=== PATIENT | female | born 1990 | race Caucasian/White ===

== ENCOUNTER 2022-01-24 12:16 | Emergency (ER) | payer OTHER ==
[~2022-01-24] VITALS: Ht 170.2 cm; Wt 68.0 kg
[2022-01-24 12:19] VITALS: BP 111/72
[2022-01-24] MEDS ORDERED: NAPR500T7 PO (13:34)
[2022-01-24] MEDS ORDERED: CYCL5TAB PO (13:34)
== END 2022-01-24 13:56 | disposition home or self-care (01) ==
LOC: ER 12:16
DX: S16.1XXA Strain of muscle, fascia and tendon at neck level, initial encounter (principal); R51.9 Headache, unspecified; E05.90 Thyrotoxicosis, unspecified without thyrotoxic crisis or storm; V43.52XA Car driver injured in collision with other type car in traffic accident, initial encounter; Y93.89 Activity, other specified; Y92.488 Other paved roadways as the place of occurrence of the external cause
CPT/HCPCS: 99282